=== PATIENT | female | born 1935 | race Hispanic/Latino ===

== ENCOUNTER 2017-10-05 12:37 | Emergency (ER) | payer MEDICARE, MEDICAID ==
[2017-10-05] MEDS ORDERED: ISOVUE-370 76%-LOCM 1 ML ONE (14:04)
--- NOTE | 2017-10-05 14:22 | RAD ---
SINGLE VIEW OF THE CHEST: Comparison: 05-03-11 History: Right rib pain after injury seven days ago. FINDINGS: Single view of the chest shows a normal sized cardiomediastinal silhouette with atherosclerotic calci fications in the aorta. There is no evidence of consolidation, mass or pleural effusion. No pneumotho rax is appreciated. An anchor is seen in the right humerus from prior right shoulder surgery. IMPRESSION: No evidence of acute cardiopulmonary disease. POS: [facility]
--- NOTE | 2017-10-05 14:24 | RAD ---
RIGHT RIB SERIES: Comparison: None. History: Right rib pain after injury 7 days ago. FINDINGS: Three views of the right ribs shows no evidence of displaced right rib fracture. No expansile rib les ions are seen. No underlying pleural thickening or pneumothorax are seen. There is an opacity projecting over the right lower lobe measuring 1.9 cm in size. This is not apprec iated on the anterior chest radiograph from today and could represent a pulmonary mass. IMPRESSION: 1. No evidence of displaced right rib fracture. 2. Mass like opacity projecting over the right costophrenic angle could represent a pulmonary mass. A CT of the chest with contrast is recommended for further evaluation. POS: [facility]
[2017-10-05 15:12] LABS: #Basophils 0.1 thou/uL (0.0-0.2); #Eosinphils 0.2 thou/uL (0.0-0.7); #Lymphocytes 2.3 thou/uL (1.20-3.40); #Monocytes 0.6 thou/uL (0.11-0.59); #Neutrophils 3.4 thou/uL (1.40-6.50); %Basophils 0.8 % (0.0-1.0); %Eosinophils 2.5 % (0.0-10.0); %Lymphocytes 35.4 % (21.0-51.0); %Monocytes 9.4 % (0.0-10.0); Hematocrit 40.7 % (36.0-47.0); Mean Platelet Volume 7.4 fL (7.4-10.4); Red Blood Cell (RBC) Count 4.03 mill/uL (4.20-5.40); White Blood Cell (WBC) Count 6.6 thou/uL (4.8-10.8)
[2017-10-05 15:34] LABS: Anion Gap 13 mmol/L (10-20); BUN (Urea Nitrogen) 16 mg/dL (9.8-20.1); Calc. Creatinine Clearance 0 mL/min (70-130); Calcium 10.1 mg/dL (7.8-10.44); Carbon Dioxide 26 mmol/L (23-31); Chloride 107 mmol/L (98-107); Estimated GFR-MDRD 55
[2017-10-05] MEDS ORDERED: traMADol HCl 50 MG TAB ONE (17:04)
--- NOTE | 2017-10-05 17:28 | CT ---
CT OF THE CHEST WITH CONTRAST 10/05/17 COMPARISON: None. HISTORY: Right rib pain after injury seven days ago. Abnormal chest x-ray. TECHNIQUE: Multiple contiguous axial images are obtained in a CT of the chest with contrast. Coronal reformats w ere performed. FINDINGS: There is a 2.1 cm mass in the right lower lobe. No pleural effusion is seen. No other pulmonary nodul es are seen. The heart is normal in size. No hilar or mediastinal lymphadenopathy are present. There are subcentimeter hypodensities in the liver which are too small to definitely characterize and may represent cysts. There is a 1.3 cm cyst in the left lobe of the liver. The gallbladder has been removed and there is enlargement of the common bile duct and central intrahepatic biliary tree. This may represent a reservoir effect from prior cholecystectomy. The visualized subdiaphragmatic structur es are unremarkable. Degenerative changes are seen in the spine. The chest wall soft tissues are unremarkable. IMPRESSION: 1. Right lower lobe mass is concerning for malignancy. PET CT could be performed to evaluate fo r hypermetabolic activity. 2. Likely hepatic cysts. 3. Status post cholecystectomy with likely reservoir effect from prior cholecystectomy with enla rgement of the biliary tree. Correlate with elevated LFTs. POS: [facility]
--- NOTE | 2017-10-14 14:39 | EKG ---
Test Reason : Blood Pressure : / mmHG Vent. Rate : 062 BPM Atrial Rate : 062 BPM P-R Int : 214 ms QRS Dur : 088 ms QT Int : 424 ms P-R-T Axes : 036 -47 014 degrees QTc Int : 430 ms Sinus rhythm with 1st degree A-V block Left anterior fascicular block Abnormal ECG Confirmed by KAREN KAY DO ([id number]), image editor VLADISLAV ESPAÑA ([id number]) on 10/14/2017 2:39:21 PM Referred By: Confirmed By:KAREN KAY DO
== END 2017-10-05 17:30 | disposition home or self-care (01) ==
LOC: ERS 12:37
DX: R91.8 Other nonspecific abnormal finding of lung field (principal); E03.9 Hypothyroidism, unspecified; I10 Essential (primary) hypertension
CPT/HCPCS: 71010; 71260; 80048; 85025; 93005

== ENCOUNTER 2017-10-31 08:36 | Day surgery (SDC) | payer MEDICARE, MEDICAID ==
[2017-10-31 09:02] LABS: #Eosinphils 0.2 thou/uL (0.0-0.7); #Lymphocytes 1.6 thou/uL (1.20-3.40); #Monocytes 0.8 thou/uL (0.11-0.59); #Neutrophils 3.7 thou/uL (1.40-6.50); %Basophils 0.7 % (0.0-1.0); %Eosinophils 3.1 % (0.0-10.0); %Lymphocytes 25.7 % (21.0-51.0); %Monocytes 11.9 % (0.0-10.0); %Neutrophils 58.6 % (42.0-75.0); Hemoglobin 13.1 g/dL (12.0-16.0); Mean Corpuscular HGB CONC 33.2 g/dL (32.0-36.0); Mean Corpuscular Hemoglobin 33.3 pg (27.0-31.0); Mean Platelet Volume 6.9 fL (7.4-10.4); Platelet Count 321 thou/uL (130-400); RBC Distribution Width 11.7 % (11.5-14.5); Red Blood Cell (RBC) Count 3.95 mill/uL (4.20-5.40); White Blood Cell (WBC) Count 6.4 thou/uL (4.8-10.8)
[2017-10-31 09:04] LABS: PTT 28.1 SEC (22.9-36.1); Prothrombin Time 13.4 SEC (12.0-14.7)
[2017-10-31 10:03] VITALS: BP 123/67; TEMP 97.6; BMI 25.8
[2017-10-31] MEDS ORDERED: FLU VACC TS2017-18 (>65YR) 0.5 ML SYRINGE IM ONE (10:45)
[2017-10-31] MEDS ORDERED: HYDROcodone/Acetaminophen 5/325 mg Tablet ONE (10:51)
--- NOTE | 2017-10-31 11:33 | RAD ---
CHEST INSPIRATORY AND EXPIRATORY VIEWS: History: Lung mass. Biopsy. FINDINGS: Cardiac silhouette is unremarkable. Mediastinum is midline with aortic calcification. Right lung mass is faintly visualized at the right base. There are post op changes of the right shoulder. A subtle curvilinear density of the right apex on the inspiratory view is favored to be related to th e rib margin rather than a pneumothorax as no pneumothorax is apparent on the expiratory view. IMPRESSION: 1. Stable post procedure radiograph of the chest. No evidence of pneumothorax. 2. Atherosclerosis. POS: [facility]
--- NOTE | 2017-10-31 11:40 | CT ---
CT GUIDED RIGHT LUNG MASS BIOPSY: History: Right lung mass. FINDINGS: After explaining the procedure and answering all questions, the patient was placed on the CT table in prone position. Limited CT imaging was used to localize the mass at the right lung base. Sterile fabiana hnique, buffered local anesthesia, CT guidance and a right posterolateral approach were used to caref ully advance the tip of a 19 gauge trocar needle to the level of the right lung mass. Position was co nfirmed with CT. Three core 20 gauge biopsy specimens were obtained without difficulty and submitted to pathology for evaluation. Post procedure imaging shows minimal right pneumothorax at the right bas e. Patient tolerated the procedure well and was returned to holding in good condition for further mon itoring. IMPRESSION: Technically successful right lung mass biopsy, CT guided. Pathology is pending. POS: [facility]
--- NOTE | 2017-10-31 13:34 | RAD ---
INSPIRATORY AND EXPIRATORY FRONTAL RADIOGRAPH CHEST: 10/31/2017 11:51 a.m. HISTORY: Recent right lower lobe lung biopsy. COMPARISON: 10/31/2017 at 10:25 a.m. FINDINGS: There is a faint area of increased density in the right lung base, correlating with the patient's kno wn right lower lobe mass. There is no discrete pneumothorax identified on the inspiratory or expiratory phase imaging on either side. IMPRESSION: 1. No discrete pneumothorax is evident on either side. 2. Right basilar density correlates with known right lung mass. POS: [facility]
== END 2017-10-31 12:50 | disposition home or self-care (01) ==
LOC: CT 08:36
PROVIDERS: ATTEND Internal Medicine Critical Care Medicine
PROC: 0B9K3ZX Drainage of Right Lung, Percutaneous Approach, Diagnostic (ICD-10-PCS; principal; 2017-10-31)
DX: R91.8 Other nonspecific abnormal finding of lung field (principal); M19.90 Unspecified osteoarthritis, unspecified site; I10 Essential (primary) hypertension; E89.0 Postprocedural hypothyroidism; Z79.899 Other long term (current) drug therapy; Z98.890 Other specified postprocedural states
CPT/HCPCS: 32405; 36415; 71045; 77012; 85025; 85610; 85730; 88305; 88313; 88341; 88342

== ENCOUNTER 2017-12-28 12:25 | Outpatient (CLI) | payer MEDICARE, MEDICAID ==
--- NOTE | 2017-12-28 15:10 | CT ---
CT CHEST WITH CONTRAST: Multiple axial tomograms obtained through the chest with IV enhancement. HISTORY: Followup lung mass. COMPARISON: Comparison is made to the CT of 10/05/17 which revealed right lower lobe mass. Also, correlation is made to the CT biopsy procedure 10/31/17. FINDINGS: The mass in the peripheral right lower lobe is again noted. Measurements are unchanged from the 09/22 02/06 exam. AP measurement recorded at approximately 2.4 cm. Prior AP measurement is recorded also c lose to 2.4 cm. Total dimension in coronal plane recorded at 2.1 cm whereas prior measurement was re corded at 2.0. The lung johnson are otherwise clear. There is no effusion or infiltrate. There is some stranding an d atelectasis noted. Mediastinum unremarkable. Images through the upper abdomen again show numerous hepatic cystic lesions which appear stable. Pro minence of the intra- and extrahepatic biliary ducts also appears stable. IMPRESSION: The right lower lobe lung mass appears stable in size from 10/05/17 as described above. POS: [facility]
== END 2017-12-28 12:26 | disposition home or self-care (01) ==
LOC: CT 12:25
PROVIDERS: ATTEND Internal Medicine Critical Care Medicine
DX: R91.8 Other nonspecific abnormal finding of lung field (principal)
CPT/HCPCS: 71260

== ENCOUNTER 2019-10-17 10:28 | Outpatient (CLI) | payer MEDICARE, MEDICAID ==
--- NOTE | 2019-10-17 11:01 | RAD ---
Right knee:4 views INDICATIONS:Knee pain COMPARISON:None FINDINGS: Mild narrowing of the medial joint space. Chondrocalcinosis in both medial and lateral joint spaces. Mild spurring from the femoral condyles and patella. Small joint effusion in the suprapatellar region. Arterial calcification. IMPRESSION: Zhcy-[id number] degenerative changes as described with joint effusion.
== END 2019-10-17 10:29 | disposition home or self-care (01) ==
LOC: BICRAD 10:28
PROVIDERS: ATTEND Family Medicine
DX: M25.561 Pain in right knee (principal); M17.11 Unilateral primary osteoarthritis, right knee; M25.461 Effusion, right knee

== ENCOUNTER 2024-11-16 09:59 | Inpatient (IN) | payer OTHER, MEDICAID ==
[2024-11-16] MEDS ORDERED: Acetaminophen 500 MG TAB ONE (10:48)
[2024-11-16] MEDS ORDERED: Albuterol 2.5 MG (0.5 mL) NEB ONE ×2 (10:48→10:50)
[2024-11-16] MEDS ORDERED: Ipratropium Bromide 2.5 ml Neb ONE ×2 (10:49→12:35)
[2024-11-16] MEDS ORDERED: methylPREDNISolone Sod Succ/PF 125 MG/2 ML VIAL ONE (10:49)
[2024-11-16 10:58] LABS: #Basophils Less than 0.03 10x3/uL (0.0-0.2); #Eosinophils Less than 0.03 10x3/uL (0.0-0.7); %Basophils 0.2 % (0.0-1.0); %Eosinophils 0.1 % (0.0-10.0); %Lymphocytes 12.2 % (21.0-51.0); %Monocytes 9.8 % (0.0-10.0); %Neutrophils 77.3 % (42.0-75.0); Hematocrit 37.5 % (36.0-47.0); Hemoglobin 12.6 g/dL (12.0-16.0); Mean Corpuscular HGB CONC 33.6 g/dL (32.0-36.0); Mean Corpuscular Hemoglobin 32.9 pg (27.0-31.0); Mean Corpuscular Volume 97.9 fL (78.0-98.0); Mean Platelet Volume 9.8 fL (7.4-10.4); Platelet Count 257 10x3/uL (130-400); RBC Distribution Width 13.1 % (11.5-14.5); Red Blood Cell (RBC) Count 3.83 mill/uL (4.20-5.40)
[2024-11-16 11:22] LABS: Troponin I 0.022 ng/mL (< 0.028)
[2024-11-16 11:25] LABS: ALT (SGPT) 20 U/L (Less than 34); AST (SGOT) 52 U/L (11-34); Albumin 3.7 g/dL (3.1-4.5); Alkaline Phosphatase 75 U/L (40-110); Anion Gap 15 mmol/L (10-20); BUN (Urea Nitrogen) 18 mg/dL (9.8-20.1); Calc. Creatinine Clearance 0 mL/min (70-130); Calcium 9.4 mg/dL (7.8-10.44); Carbon Dioxide 21 mmol/L (23-31); Chloride 99 mmol/L (98-107); Estimated GFR 71; Globulin 4.9 g/dL (2.4-3.5); Glucose 95 mg/dL (83-110); Magnesium 1.8 mg/dL (1.6-2.6); Potassium 4.6 mmol/L (3.5-5.1); Protein, Total 8.5 g/dL (5.8-8.1); Sodium 130 mmol/L (136-145)
[2024-11-16] MEDS ORDERED: Oseltamivir 75 MG CAP ONE (12:28)
[2024-11-16] MEDS ORDERED: Albuterol 2.5 MG (3 mL) NEB ONE (12:34)
[2024-11-16] MEDS ORDERED: Azithromycin 500 MG VIAL ONE (12:57)
[2024-11-16] MEDS ORDERED: cefTRIAXone (ROCEPHIN) 2 GM VIAL ONE (12:57)
[2024-11-16] MEDS ORDERED: Magnesium 2 GM/50 ML BAG (IN WATER) ONE (12:57)
[2024-11-16] MEDS ORDERED: Sodium Chloride 0.9% 100 ML ONE (12:57)
[2024-11-16 13:04] LABS: Bilirubin Negative (Negative); Blood, Urine Trace (Negative); CAUTI Indications for Culture Fever or rigors; Clarity Turbid (Clear); Glucose, Urine (Dipstick) Normal (Negative); Ketone, Urine Negative (Negative); Leukocyte 250 Leu/uL (Negative); Nitrite Negative (Negative); Protein, Urine (Dipstick) 20 mg/dL (Neg-Trace); RBC/HPF 0-3 HPF (0-3); Specific Gravity, Urine 1.022 (1.002-1.036); Squamous Epithelial 0-3 HPF (0-3); Urobilinogen Normal mg/dL (Less than 2); WBC/HPF Greater than 50 HPF (0-3)
[2024-11-16 13:07] LABS: Bacteria/HPF 1+ HPF (None Seen)
[2024-11-16 13:08] LABS: Urine Culture Reflex Yes Yes
[2024-11-16] MEDS ORDERED: Senokot S 8.6-50 MG TAB PO PRN (14:39)
[2024-11-16] MEDS ORDERED: Acetaminophen 325 MG TAB PO PRN (14:39)
[2024-11-16] MEDS ORDERED: Acetaminophen 650 MG Suppository PR PRN (14:39)
[2024-11-16] MEDS ORDERED: Ondansetron PF 4 MG/2 ML Vial IVP PRN (14:39)
[2024-11-16] MEDS ORDERED: Ondansetron ODT 4 MG TAB PO PRN (14:39)
[2024-11-16 16:25] LABS: Magnesium 1.8 mg/dL (1.6-2.6)
[2024-11-16 17:16] VITALS: BMI 26.7
[2024-11-16] MEDS: Ipratropium/Albuterol 3 ML NEB NEB SCH (18:36)
[2024-11-16] MEDS ORDERED: Enoxaparin 60 MG (0.6 mL) SYRINGE SC SCH (21:00)
[2024-11-16] MEDS: Oseltamivir 6 MG/ML ORAL SUSP PO SCH (21:35)
[2024-11-16] MEDS: methylPREDNISolone Sod Succ 40 MG VIAL IVP SCH (21:36)
[2024-11-16] MEDS: Enoxaparin 40 MG (0.4 mL) SYRINGE SC SCH (21:36)
[2024-11-17 04:57] LABS: #Basophils Less than 0.03 10x3/uL (0.0-0.2); #Eosinophils Less than 0.03 10x3/uL (0.0-0.7); %Lymphocytes 13.2 % (21.0-51.0); %Monocytes 2.5 % (0.0-10.0); %Neutrophils 83.8 % (42.0-75.0); Hematocrit 33.6 % (36.0-47.0); Hemoglobin 11.4 g/dL (12.0-16.0); Mean Corpuscular HGB CONC 33.9 g/dL (32.0-36.0); Mean Corpuscular Hemoglobin 33.2 pg (27.0-31.0); Mean Platelet Volume 9.8 fL (7.4-10.4); Platelet Count 221 10x3/uL (130-400); RBC Distribution Width 12.9 % (11.5-14.5); Red Blood Cell (RBC) Count 3.43 mill/uL (4.20-5.40)
[2024-11-17] MEDS: Levothyroxine Sodium 75 MCG TAB PO SCH (05:22)
[2024-11-17 05:32] LABS: ALT (SGPT) 16 U/L (Less than 34); AST (SGOT) 26 U/L (11-34); Albumin 3.2 g/dL (3.1-4.5); Alkaline Phosphatase 61 U/L (40-110); Anion Gap 12 mmol/L (10-20); BUN (Urea Nitrogen) 21 mg/dL (9.8-20.1); Bilirubin, Total 0.4 mg/dL (0.3-1.2); Calc. Creatinine Clearance 42 mL/min (70-130); Calcium 9.1 mg/dL (7.8-10.44); Carbon Dioxide 23 mmol/L (23-31); Chloride 104 mmol/L (98-107); Estimated GFR 68; Globulin 4.1 g/dL (2.4-3.5); Glucose 157 mg/dL (83-110); Protein, Total 7.3 g/dL (5.8-8.1); Sodium 135 mmol/L (136-145)
[2024-11-17] MEDS ORDERED: Enoxaparin 40 MG (0.4 mL) SYRINGE SC SCH (09:00)
[2024-11-17] MEDS: Pantoprazole 40 MG DR.TAB PO SCH (09:05)
[2024-11-17] MEDS: Azithromycin 500 MG in Sodium Chloride 0.9% 250 ML 250 ML IVPB SCH (15:21)
[2024-11-17] MEDS: cefTRIAXone\\ROCEPHIN 1 GM in Sodium Chloride 0.9% 100 ML IVPB SCH (15:25)
[2024-11-17] MEDS: methylPREDNISolone Sod Succ 40 MG VIAL IVP SCH (20:28)
[2024-11-17] MEDS: Melatonin 3 MG TAB PO PRN (20:37)
[2024-11-18] MEDS ORDERED: Electrolyte Replacement Protocol FS PRN (08:45)
[2024-11-18] MEDS: Doxycycline 100 MG CAP PO SCH (09:24)
[2024-11-18] MEDS: hydrALAZINE 25 MG TAB PO PRN (09:24)
[2024-11-18] MEDS: Lisinopril 20 MG TAB PO SCH (09:30)
[2024-11-18] MEDS: FLU (Fluad Triv) TS24-25 (65UP)/MF59C/PF 45 MCG/0.5 ML Syringe IM ONE (09:36)
[2024-11-18] MEDS: Electrolyte Replacement Protocol 1 EACH FS ONE (09:41)
[2024-11-18] MEDS: Benzonatate 100 MG CAP PO PRN (12:07)
[2024-11-18] MEDS: Ipratropium Bromide 2.5 ml Neb NEB PRN (12:08)
[2024-11-18 14:43] LABS: #Basophils Less than 0.03 10x3/uL (0.0-0.2); #Eosinophils Less than 0.03 10x3/uL (0.0-0.7); %Basophils 0.1 % (0.0-1.0); %Lymphocytes 6.9 % (21.0-51.0); %Monocytes 0.9 % (0.0-10.0); %Neutrophils 91.3 % (42.0-75.0); Hematocrit 37.6 % (36.0-47.0); Hemoglobin 12.5 g/dL (12.0-16.0); Mean Corpuscular HGB CONC 33.2 g/dL (32.0-36.0); Mean Corpuscular Hemoglobin 33.3 pg (27.0-31.0); Mean Corpuscular Volume 100.3 fL (78.0-98.0); Mean Platelet Volume 9.9 fL (7.4-10.4); Platelet Count 280 10x3/uL (130-400); RBC Distribution Width 13.1 % (11.5-14.5); Red Blood Cell (RBC) Count 3.75 mill/uL (4.20-5.40)
[2024-11-18 15:01] LABS: Phosphorus 3.3 mg/dL (2.5-4.5)
[2024-11-18 15:03] LABS: Anion Gap 14 mmol/L (10-20); BUN (Urea Nitrogen) 29 mg/dL (9.8-20.1); Calc. Creatinine Clearance 39 mL/min (70-130); Calcium 9.4 mg/dL (7.8-10.44); Carbon Dioxide 23 mmol/L (23-31); Chloride 102 mmol/L (98-107); Estimated GFR 64; Glucose 149 mg/dL (83-110); Potassium 3.7 mmol/L (3.5-5.1); Sodium 135 mmol/L (136-145)
[2024-11-18] MEDS: predniSONE 20 MG TAB PO SCH (16:52)
[2024-11-18] MEDS: Atorvastatin Calcium 20 MG TAB PO SCH (22:31)
[2024-11-18] MEDS: traZODone HCl 50 MG TAB PO SCH (22:31)
[2024-11-19 05:07] LABS: #Basophils Less than 0.03 10x3/uL (0.0-0.2); #Eosinophils Less than 0.03 10x3/uL (0.0-0.7); %Basophils 0.1 % (0.0-1.0); %Lymphocytes 13.2 % (21.0-51.0); %Monocytes 3.9 % (0.0-10.0); %Neutrophils 82.3 % (42.0-75.0); Hematocrit 33.3 % (36.0-47.0); Hemoglobin 11.2 g/dL (12.0-16.0); Mean Corpuscular HGB CONC 33.6 g/dL (32.0-36.0); Mean Corpuscular Hemoglobin 33.3 pg (27.0-31.0); Mean Corpuscular Volume 99.1 fL (78.0-98.0); Mean Platelet Volume 10.3 fL (7.4-10.4); Platelet Count 259 10x3/uL (130-400); RBC Distribution Width 12.9 % (11.5-14.5); Red Blood Cell (RBC) Count 3.36 mill/uL (4.20-5.40)
[2024-11-19 05:53] LABS: Anion Gap 12 mmol/L (10-20); BUN (Urea Nitrogen) 28 mg/dL (9.8-20.1); Calc. Creatinine Clearance 44 mL/min (70-130); Carbon Dioxide 25 mmol/L (23-31); Chloride 106 mmol/L (98-107); Estimated GFR 73; Glucose 114 mg/dL (83-110); Magnesium 2.1 mg/dL (1.6-2.6); Potassium 3.8 mmol/L (3.5-5.1); Sodium 139 mmol/L (136-145)
[2024-11-19] MEDS: Levothyroxine Sodium 75 MCG TAB PO SCH (06:08)
[2024-11-19] MEDS ORDERED: Doxycycline 100 MG CAP PO SCH (09:00)
[2024-11-19] MEDS: Lisinopril 20 MG TAB PO SCH (09:08)
[2024-11-19] MEDS: cefTRIAXone\\ROCEPHIN 1 GM in Sodium Chloride 0.9% 100 ML IVPB SCH (10:40)
[2024-11-19 12:34] VITALS: BP 160/77; TEMP 99
== END 2024-11-19 15:10 | disposition home or self-care (01) | DRG 194 ==
LOC: ERS 09:59 → 2NO 16:28 → OBSVTOIN 11-18 08:49
PROVIDERS: ADMIT Internal Medicine; ATTEND Internal Medicine
DX: J10.00 Influenza due to other identified influenza virus with unspecified type of pneumonia (principal); E87.1 Hypo-osmolality and hyponatremia; N39.0 Urinary tract infection, site not specified; I10 Essential (primary) hypertension; E78.5 Hyperlipidemia, unspecified; E03.9 Hypothyroidism, unspecified; I35.0 Nonrheumatic aortic (valve) stenosis; B96.20 Unspecified Escherichia coli [E. coli] as the cause of diseases classified elsewhere; E83.42 Hypomagnesemia; E87.6 Hypokalemia; K21.9 Gastro-esophageal reflux disease without esophagitis; G47.00 Insomnia, unspecified; I48.91 Unspecified atrial fibrillation; Z79.899 Other long term (current) drug therapy; Z79.890 Hormone replacement therapy; Z90.49 Acquired absence of other specified parts of digestive tract; Z96.652 Presence of left artificial knee joint; Z96.641 Presence of right artificial hip joint
CPT/HCPCS: 36415; 71046; 80048; 80053; 81001; 83605; 83735; 83880; 84100; 84484; 85025; 87040; 87077; 87086; 87186; 87428; 90653; 93005; 93306; 94640; 96372; 96376; G0378; J0456; J0696; J1650; J2919; J3475; J7050; J7512; J7611; J7620; J7644